=== PATIENT | female | born 1965 | race Caucasian/White ===

== ENCOUNTER 2017-12-27 01:04 | Emergency (ER) | payer BC, OTHER ==
[2017-12-27 01:17] VITALS: BP 127/75; PULSE 83; RESP 19; TEMP 98.6; O2SAT 100
[2017-12-27] MEDS ORDERED: SODIUM CHLOR 0.9% 1000 ML INJ 1,000 ML IV ONE (01:30)
[2017-12-27] MEDS ORDERED: LORazepam 2 MG/ML VIAL IV PUSH ONE (01:30)
[2017-12-27] MEDS ORDERED: HALOPERIDOL LACTATE 5 MG/ML AMP IV PUSH ONE (01:30)
--- NOTE | 2017-12-27 01:39 | PD ---
HPI Chief Complaint: Alcohol/Drug Intoxication Time Seen by Provider: 01:15 Travel History International Travel<30 days: No Contact w/Intl Traveler<30days: No Traveled to known affect area: No History of Present Illness HPI 52-year-old female [place] emergency [place]. The patient has been acting bizarre. She has been drinking alcohol. The patient states that she had met someone on the airplane and had drinks with him. She is unsure whether she had been given something in her drink. She states that she only had 2 alcoholic beverages. She denies any suicidal homicidal ideation. Her and daughter have shown up to the ER now and are at bedside. They state that they are visiting from [place] and she is from [place] and they were meeting up for vacation. [facility] Past Medical History Narrative Medical Anxiety Diminished Hearing: No ?: Not Past Surgical History Gynecologic Surgery: Yes Social History Alcohol Use: Yes Tobacco Use: No Substance Use: No Allergies-Medications (Allergen,Severity, Reaction): Coded Allergies: No Known Allergies (Unverified , 12/27/17) Review of Systems ROS Limitations: Intoxication Physical Exam Narrative GENERAL: Well-nourished, well-developed patient. Smells of EtOH appears intoxicated SKIN: Warm and dry. HEAD: Normocephalic and atraumatic. EYES: No scleral icterus. No injection or drainage. ENT: No nasal drainage noted. Mucous membranes pink. Airway patent. NECK: Supple, trachea midline. Moves head freely without obvious discomfort. CARDIOVASCULAR: Regular rate and rhythm without murmurs, gallops, or rubs. RESPIRATORY: Breath sounds equal bilaterally. No accessory muscle use. GASTROINTESTINAL: Abdomen soft, non-tender, nondistended. EXTREMITIES: No cyanosis or edema. BACK: Nontender without obvious deformity. No CVA tenderness. NEURO: Patient is alert and oriented. no sensorimotor deficits. Nonfocal. Normal speech. PSYCH: No delusions. No auditory or visual hallucinations. Data Data Last Documented VS Vital Signs Date Time Temp Pulse Resp B/P (MAP) Pulse Ox O2 Delivery O2 Flow Rate FiO2 12/27/17 01:17 98.6 83 19 127/75 (92) 100 Room Air Orders Orders Iv Access Insert/Monitor (12/27/17 01:28) Alcohol (Ethanol) (12/27/17 01:28) Sodium Chlor 0.9% 1000 Ml Inj (Ns 1000 M (12/27/17 01:30) Lorazepam Inj (Ativan Inj) (12/27/17 01:30) Haloperidol Inj (Haldol Inj) (12/27/17 01:30) Ed Discharge Order (12/27/17 02:56) Labs Laboratory Tests Test 12/27/17 01:45 Ethyl Alcohol Level 194 MG/DL MDM Medical Decision Making Medical Screen Exam Complete: Yes Emergency Medical Condition: Yes Medical Record Reviewed: Yes Interpretation(s) Laboratory Tests Test 12/27/17 01:45 Ethyl Alcohol Level 194 MG/DL Differential Diagnosis Differential diagnoses: Alcohol intoxication, substance abuse, electrolyte abnormality, malingering Narrative Course IV access is obtained. Patient given a liter bolus normal saline, Ativan 1 mg IV, Haldol 2 mg IV. Patient is EtOH is 194. This is much higher than the patient's reported 2 drinks. I suspect her demeanor and actions are related to alcohol intoxication. I do not believe that she was given any illegal substances. Patient's feels comfortable taking her home. She is much more relaxed cooperative now after medications. She is considered medically stable for discharge. This is alcohol intoxication, alcohol induced mood disorder Diagnosis Primary Impression: Alcohol intoxication Additional Impression: Alcohol induced mood disorder Patient Instructions: General Instructions Additional Instructions: Rest. Increase fluids. No alcohol. Follow-up with a primary care doctor in the next few days for recheck. Return to the ER for any problems. Med/Other Pt SpecificInfo: No Meds Exist/No RX given Disposition: 01 DISCHARGE HOME Condition: Stable Guerrero Morales December 27, 2017 01:39
== END 2017-12-27 03:40 | disposition home or self-care (01) ==
LOC: NEPD 01:04
DX: F10.129 Alcohol abuse with intoxication, unspecified (principal); F10.14 Alcohol abuse with alcohol-induced mood disorder; Y90.6 Blood alcohol level of 120-199 mg/100 ml
CPT/HCPCS: 80307; 96361; 96374; 96375; 99284; J1630; J2060; J7030